=== PATIENT | female | born 1945 | race Caucasian/White ===

== ENCOUNTER → 2023-10-08 15:59 | Outpatient (REF) | payer MEDICARE, SELFPAY ==
[2023-10-08 13:56] LABS: % Basophils 0.5 % (0-2); % Eosinophils 0.4 % (0-6); % Immature Granulocytes 0.4 % (0-0.5); % Lymphocytes 29.3 % (20.5-51.1); % Monocytes 11.1 % (1.7-9.3); % Neutrophils 58.3 % (42.2-75.2); Absolute Lymphocytes 2.3 10^3/uL (1.2-3.4); Absolute Monocytes 0.9 10^3/uL (0.1-0.6); Absolute Neutrophils 4.5 10^3/uL (1.4-6.5); Hematocrit 41.6 % (37.0-47.0); Hemoglobin 14.2 g/dL (12.0-16.0); Mean Corp Hgb Conc. 34.1 g/dL (33.0-37.0); Mean Corpuscular Hgb 32.5 pg (27.0-31.0); Mean Corpuscular Volume 95.2 fL (81.0-99.0); Mean Platelet Volume 12.2 fL (7.4-10.4); Nucleated Red Blood Cells % 0 %; Platelet Count 232 10^3/uL (130-400); Red Blood Cell Count 4.37 10^6/uL (4.20-5.40); Red Cell Dist. Width 12.7 % (11.5-14.5); White Blood Cell Count 7.8 10^3/uL (4.8-10.8)
[2023-10-08 14:18] LABS: ALT (SGPT) 34 U/L (0-35); AST (SGOT) 42 U/L (14-36); Albumin 3.8 g/dl (3.5-5.0); Alkaline Phosphatase 76 U/L (38-126); Blood Urea Nitrogen 23 mg/dl (7-17); Calcium 10.1 mg/dl (8.4-10.2); Carbon Dioxide 27 mmol/L (22-30); Chloride 106 mmol/L (98-107); Glucose 84 mg/dl (70-99); Potassium 4.4 mmol/L (3.5-5.1); Sodium 138 mmol/L (135-145); Total Bilirubin 0.7 mg/dl (0.2-1.3); Total Protein 6.4 g/dl (6.3-8.2); eGFR > 60.00
[2023-10-09 23:54] LABS: IgG 606 mg/dl (700-1600)
== END ==
LOC: OIDL 15:59
PROVIDERS: ATTENDING PHYSICIAN Internal Medicine Hematology & Oncology
DX: I27.82 Chronic pulmonary embolism (principal)
CPT/HCPCS: 80053; 82784; 85025

== ENCOUNTER → 2023-11-04 09:29 | Outpatient (REF) | payer MEDICARE, SELFPAY ==
[2023-11-04 10:18] LABS: % Basophils 0.4 % (0-2); % Eosinophils 0.4 % (0-6); % Immature Granulocytes 0.8 % (0-0.5); % Lymphocytes 18.3 % (20.5-51.1); % Monocytes 11.9 % (1.7-9.3); % Neutrophils 68.2 % (42.2-75.2); Absolute Basophils 0.1 10^3/uL (0-0.2); Absolute Eosinophils 0.1 10^3/uL (0-0.7); Absolute Immature Granulocytes 0.1 10^3/uL (0-0.05); Absolute Lymphocytes 2.1 10^3/uL (1.2-3.4); Absolute Monocytes 1.4 10^3/uL (0.1-0.6); Hematocrit 43.2 % (37.0-47.0); Hemoglobin 14.5 g/dL (12.0-16.0); Mean Corp Hgb Conc. 33.6 g/dL (33.0-37.0); Mean Corpuscular Hgb 32.7 pg (27.0-31.0); Mean Corpuscular Volume 97.3 fL (81.0-99.0); Mean Platelet Volume 10.9 fL (7.4-10.4); Nucleated Red Blood Cells % 0 %; Platelet Count 274 10^3/uL (130-400); Red Blood Cell Count 4.44 10^6/uL (4.20-5.40); Red Cell Dist. Width 12.8 % (11.5-14.5); White Blood Cell Count 11.7 10^3/uL (4.8-10.8)
[2023-11-04 12:15] LABS: ALT (SGPT) 16 U/L (0-35); AST (SGOT) 25 U/L (14-36); Albumin 3.9 g/dl (3.5-5.0); Alkaline Phosphatase 100 U/L (38-126); Blood Urea Nitrogen 20 mg/dl (7-17); Carbon Dioxide 27 mmol/L (22-30); Chloride 102 mmol/L (98-107); Glucose 138 mg/dl (70-99); Iron 51 ug/dl (37-170); Potassium 3.8 mmol/L (3.5-5.1); Sodium 137 mmol/L (135-145); Total Bilirubin 0.6 mg/dl (0.2-1.3); Total Protein 6.4 g/dl (6.3-8.2); eGFR > 60.00
[2023-11-04 12:24] LABS: Percent Saturation 15 % (20-50); Total Iron Binding Capacity 323 ug/dl (265-497)
[2023-11-04 14:22] LABS: Folate > 20.0 ng/ml (2.76-20); Vitamin B12 520 pg/ml (239-931)
[2023-11-04 14:40] LABS: Urine Albumin Trace (Neg - Trace); Urine Bilirubin 1+ (Negative); Urine Character Clear (Clear); Urine Color Yellow; Urine Glucose Negative (Negative); Urine Ketone Negative (Negative); Urine Leukocyte 1+ (Negative); Urine Nitrite Negative (Negative); Urine Occult Blood Negative (Negative); Urine Specific Gravity 1.025 (<1.030); Urine Urobilinogen Negative (Neg - 1+)
[2023-11-04 15:01] LABS: Urine Calcium Oxalate Crystals Present; Urine Squamous Cell 0-2 /LPF (Few)
[2023-11-04 15:02] LABS: Urine Bacteria Few (Negative); Urine Red Blood Cell 0-2 /HPF (0-2); Urine White Cell 0-2 /HPF (0-5)
[2023-11-05 18:37] LABS: Ferritin 89.9 ng/ml (11.1-264.0)
== END ==
LOC: REG 09:29
PROVIDERS: ATTENDING PHYSICIAN Nurse Practitioner Adult Health; FAMILY PHYSICIAN Internal Medicine Geriatric Medicine; REFERRING PHYSICIAN Internal Medicine Rheumatology
DX: I27.82 Chronic pulmonary embolism (principal); D83.9 Common variable immunodeficiency, unspecified; D50.9 Iron deficiency anemia, unspecified; C83.07 Small cell B-cell lymphoma, spleen; D70.9 Neutropenia, unspecified; R19.7 Diarrhea, unspecified; R53.83 Other fatigue; D51.3 Other dietary vitamin B12 deficiency anemia; M25.50 Pain in unspecified joint; M48.061 Spinal stenosis, lumbar region without neurogenic claudication; M54.50 Low back pain, unspecified; M81.0 Age-related osteoporosis without current pathological fracture; Z51.81 Encounter for therapeutic drug level monitoring; R32 Unspecified urinary incontinence
CPT/HCPCS: 36415; 80053; 81003; 81015; 82607; 82728; 82746; 83540; 83550; 85025; 87086

== ENCOUNTER → 2023-11-06 14:11 | Outpatient (REF) | payer MEDICARE, SELFPAY | LOC: RAD 14:11 | PROVIDERS: ATTENDING PHYSICIAN Nurse Practitioner Family | DX: J06.9 Acute upper respiratory infection, unspecified (principal) | CPT/HCPCS: 71046 ==

== ENCOUNTER → 2023-11-13 09:59 | Outpatient (REF) | payer MEDICARE, SELFPAY ==
[2023-11-13 11:43] LABS: Urine Albumin Negative (Neg - Trace); Urine Bilirubin 1+ (Negative); Urine Character Clear (Clear); Urine Color Yellow; Urine Glucose Negative (Negative); Urine Ketone Trace (Negative); Urine Leukocyte Trace (Negative); Urine Nitrite Negative (Negative); Urine Occult Blood Negative (Negative); Urine Urobilinogen Negative (Neg - 1+)
[2023-11-13 11:46] LABS: Urine Red Blood Cell 0-2 /HPF (0-2); Urine Urothelial Cell 0-2 /LPF (FEW); Urine White Cell 0-2 /HPF (0-5)
== END ==
LOC: REG 09:59
PROVIDERS: ATTENDING PHYSICIAN Internal Medicine Geriatric Medicine
DX: R39.9 Unspecified symptoms and signs involving the genitourinary system (principal)
CPT/HCPCS: 81003; 81015; 87086

== ENCOUNTER → 2023-11-18 12:08 | Outpatient (REF) | payer MEDICARE, SELFPAY ==
[2023-11-18 13:09] LABS: Urine Albumin Negative (Neg - Trace); Urine Bilirubin 1+ (Negative); Urine Character Clear (Clear); Urine Color Yellow; Urine Glucose Negative (Negative); Urine Ketone Negative (Negative); Urine Leukocyte Trace (Negative); Urine Nitrite Negative (Negative); Urine Occult Blood Negative (Negative); Urine Urobilinogen Negative (Neg - 1+)
[2023-11-18 13:17] LABS: Urine Bacteria Few (Negative); Urine Red Blood Cell 0-2 /HPF (0-2)
== END ==
LOC: REG 12:08
PROVIDERS: ATTENDING PHYSICIAN Internal Medicine Geriatric Medicine
DX: D80.3 Selective deficiency of immunoglobulin G [IgG] subclasses (principal); E78.2 Mixed hyperlipidemia; J44.9 Chronic obstructive pulmonary disease, unspecified; C85.90 Non-Hodgkin lymphoma, unspecified, unspecified site; E03.8 Other specified hypothyroidism; E78.00 Pure hypercholesterolemia, unspecified; K21.9 Gastro-esophageal reflux disease without esophagitis; M54.16 Radiculopathy, lumbar region; M75.41 Impingement syndrome of right shoulder; Z13.89 Encounter for screening for other disorder; I35.1 Nonrheumatic aortic (valve) insufficiency; F51.01 Primary insomnia; G62.9 Polyneuropathy, unspecified
CPT/HCPCS: 81003; 81015; 87086

== ENCOUNTER → 2024-01-28 11:17 | Outpatient (REF) | payer MEDICARE, SELFPAY ==
[2024-01-28 11:20] LABS: % Basophils 0.2 % (0-2); % Immature Granulocytes 0.2 % (0-0.5); % Lymphocytes 22.6 % (20.5-51.1); % Monocytes 10.9 % (1.7-9.3); % Neutrophils 65.1 % (42.2-75.2); Absolute Eosinophils 0.1 10^3/uL (0-0.7); Absolute Lymphocytes 1.9 10^3/uL (1.2-3.4); Absolute Monocytes 0.9 10^3/uL (0.1-0.6); Absolute Neutrophils 5.6 10^3/uL (1.4-6.5); Hematocrit 44.1 % (37.0-47.0); Hemoglobin 14.7 g/dL (12.0-16.0); Mean Corp Hgb Conc. 33.3 g/dL (33.0-37.0); Mean Corpuscular Hgb 32.5 pg (27.0-31.0); Mean Corpuscular Volume 97.6 fL (81.0-99.0); Mean Platelet Volume 11.4 fL (7.4-10.4); Platelet Count 201 10^3/uL (130-400); Red Blood Cell Count 4.52 10^6/uL (4.20-5.40); Red Cell Dist. Width 12.9 % (11.5-14.5); White Blood Cell Count 8.6 10^3/uL (4.8-10.8)
[2024-01-28 11:58] LABS: Iron 104 ug/dl (37-170); LDH 223 U/L (120-246)
[2024-01-28 12:07] LABS: Percent Saturation 29 % (20-50); Total Iron Binding Capacity 347 ug/dl (265-497)
[2024-01-28 13:40] LABS: Ferritin 43.6 ng/ml (11.1-264.0)
[2024-01-28 14:11] LABS: Folate 17.4 ng/ml (2.76-20); Vitamin B12 401 pg/ml (239-931)
[2024-01-29 23:34] LABS: IgG 639 mg/dl (700-1600)
== END ==
LOC: OIDL 11:17
PROVIDERS: ATTENDING PHYSICIAN Internal Medicine Hematology & Oncology
DX: I27.82 Chronic pulmonary embolism (principal)
CPT/HCPCS: 82607; 82728; 82746; 82784; 83540; 83550; 83615; 85025

== ENCOUNTER → 2024-01-29 10:41 | Outpatient (REF) | payer MEDICARE, SELFPAY | LOC: RAD 10:41 | PROVIDERS: ATTENDING PHYSICIAN Internal Medicine Rheumatology; FAMILY PHYSICIAN Internal Medicine Geriatric Medicine | DX: M81.0 Age-related osteoporosis without current pathological fracture (principal); Z13.820 Encounter for screening for osteoporosis | CPT/HCPCS: 77080 ==

== ENCOUNTER → 2024-03-11 08:56 | Outpatient (REF) | payer MEDICARE, SELFPAY ==
[2024-03-11 10:14] LABS: % Basophils 0.3 % (0-2); % Eosinophils 0.7 % (0-6); % Immature Granulocytes 0.7 % (0-0.5); % Lymphocytes 18.3 % (20.5-51.1); % Monocytes 8.4 % (1.7-9.3); % Neutrophils 71.6 % (42.2-75.2); Absolute Eosinophils 0.1 10^3/uL (0-0.7); Absolute Immature Granulocytes 0.1 10^3/uL (0-0.05); Absolute Lymphocytes 2.2 10^3/uL (1.2-3.4); Absolute Neutrophils 8.7 10^3/uL (1.4-6.5); Hematocrit 44.2 % (37.0-47.0); Mean Corp Hgb Conc. 33.9 g/dL (33.0-37.0); Mean Corpuscular Hgb 32.5 pg (27.0-31.0); Mean Corpuscular Volume 95.7 fL (81.0-99.0); Mean Platelet Volume 11.7 fL (7.4-10.4); Nucleated Red Blood Cells % 0 %; Platelet Count 245 10^3/uL (130-400); Red Blood Cell Count 4.62 10^6/uL (4.20-5.40); Red Cell Dist. Width 13.5 % (11.5-14.5); White Blood Cell Count 12.1 10^3/uL (4.8-10.8)
[2024-03-11 10:41] LABS: ALT (SGPT) 23 U/L (0-35); AST (SGOT) 27 U/L (14-36); Albumin 4.5 g/dl (3.5-5.0); Alkaline Phosphatase 78 U/L (38-126); Blood Urea Nitrogen 23 mg/dl (7-17); Calcium 10.2 mg/dl (8.4-10.2); Carbon Dioxide 26 mmol/L (22-30); Chloride 105 mmol/L (98-107); Glucose 97 mg/dl (70-99); HDL Cholesterol 99 mg/dl; LDL Cholesterol, Calculated 50 mg/dl; Potassium 4.1 mmol/L (3.5-5.1); Sodium 139 mmol/L (135-145); Total Bilirubin 0.7 mg/dl (0.2-1.3); Total Cholesterol 177 mg/dl (50-199); Total Protein 6.7 g/dl (6.3-8.2); Triglyceride 142 mg/dl (10-149); Very Low Density Lipoprotein 28 mg/dl (0-30); eGFR > 60.00
[2024-03-11 10:45] LABS: Free T4 0.82 ng/dl (0.78-2.19); Vitamin D, 25-OH*** 43.2 ng/mL (30-80)
[2024-03-11 10:58] LABS: TSH 2.61 uIU/ml (0.47-4.68)
== END ==
LOC: REG 08:56
PROVIDERS: ATTENDING PHYSICIAN Internal Medicine Rheumatology; FAMILY PHYSICIAN Internal Medicine Geriatric Medicine
DX: G95.9 Disease of spinal cord, unspecified (principal); E78.2 Mixed hyperlipidemia; D80.3 Selective deficiency of immunoglobulin G [IgG] subclasses; J44.9 Chronic obstructive pulmonary disease, unspecified; C85.90 Non-Hodgkin lymphoma, unspecified, unspecified site; E03.8 Other specified hypothyroidism; E78.00 Pure hypercholesterolemia, unspecified; K21.9 Gastro-esophageal reflux disease without esophagitis; M54.16 Radiculopathy, lumbar region; M75.41 Impingement syndrome of right shoulder; Z13.89 Encounter for screening for other disorder; I35.1 Nonrheumatic aortic (valve) insufficiency; F51.01 Primary insomnia; G62.9 Polyneuropathy, unspecified; M25.50 Pain in unspecified joint; M48.061 Spinal stenosis, lumbar region without neurogenic claudication; M54.50 Low back pain, unspecified; M81.0 Age-related osteoporosis without current pathological fracture; Z51.81 Encounter for therapeutic drug level monitoring
CPT/HCPCS: 36415; 80053; 80061; 82306; 83970; 84439; 84443; 85025

== ENCOUNTER → 2024-03-13 09:44 | Outpatient (REF) | payer MEDICARE, SELFPAY ==
[2024-03-13 10:37] LABS: % Basophils 0.6 % (0-2); % Eosinophils 0.7 % (0-6); % Immature Granulocytes 0.5 % (0-0.5); % Lymphocytes 18.6 % (20.5-51.1); % Monocytes 11.7 % (1.7-9.3); % Neutrophils 67.9 % (42.2-75.2); Absolute Basophils 0.1 10^3/uL (0-0.2); Absolute Eosinophils 0.1 10^3/uL (0-0.7); Absolute Immature Granulocytes 0.1 10^3/uL (0-0.05); Absolute Lymphocytes 1.9 10^3/uL (1.2-3.4); Absolute Monocytes 1.2 10^3/uL (0.1-0.6); Absolute Neutrophils 6.8 10^3/uL (1.4-6.5); Hematocrit 41.9 % (37.0-47.0); Hemoglobin 14.2 g/dL (12.0-16.0); Mean Corp Hgb Conc. 33.9 g/dL (33.0-37.0); Mean Corpuscular Hgb 32.7 pg (27.0-31.0); Mean Corpuscular Volume 96.5 fL (81.0-99.0); Mean Platelet Volume 11.4 fL (7.4-10.4); Nucleated Red Blood Cells % 0 %; Platelet Count 233 10^3/uL (130-400); Red Blood Cell Count 4.34 10^6/uL (4.20-5.40); Red Cell Dist. Width 13.5 % (11.5-14.5); White Blood Cell Count 10.1 10^3/uL (4.8-10.8)
[2024-03-13 10:55] LABS: NT-proBNP 149 pg/ml
[2024-03-13 12:14] LABS: ALT (SGPT) 20 U/L (0-35); AST (SGOT) 24 U/L (14-36); Albumin 4.1 g/dl (3.5-5.0); Alkaline Phosphatase 83 U/L (38-126); Blood Urea Nitrogen 27 mg/dl (7-17); Calcium 10.2 mg/dl (8.4-10.2); Carbon Dioxide 24 mmol/L (22-30); Chloride 108 mmol/L (98-107); Glucose 136 mg/dl (70-99); Potassium 3.7 mmol/L (3.5-5.1); Sodium 141 mmol/L (135-145); Total Bilirubin 0.5 mg/dl (0.2-1.3); Total Protein 6.1 g/dl (6.3-8.2); eGFR 57.31
[2024-03-14 10:38] LABS: Intact PTH 30.7 pg/ml (13.6-85.8)
== END ==
LOC: REG 09:44
PROVIDERS: ATTENDING PHYSICIAN Internal Medicine Geriatric Medicine
DX: R53.83 Other fatigue (principal); R79.9 Abnormal finding of blood chemistry, unspecified; Z79.01 Long term (current) use of anticoagulants; G95.9 Disease of spinal cord, unspecified; E78.2 Mixed hyperlipidemia; D80.3 Selective deficiency of immunoglobulin G [IgG] subclasses; J44.9 Chronic obstructive pulmonary disease, unspecified; C85.90 Non-Hodgkin lymphoma, unspecified, unspecified site; E03.8 Other specified hypothyroidism; E78.00 Pure hypercholesterolemia, unspecified; K21.9 Gastro-esophageal reflux disease without esophagitis; M54.16 Radiculopathy, lumbar region; M75.41 Impingement syndrome of right shoulder; Z13.89 Encounter for screening for other disorder; I35.1 Nonrheumatic aortic (valve) insufficiency; F51.01 Primary insomnia; G62.9 Polyneuropathy, unspecified
CPT/HCPCS: 36415; 80053; 83880; 83970; 85025

== ENCOUNTER → 2024-04-10 11:07 | Outpatient (REF) | payer MEDICARE, SELFPAY ==
[2024-04-10 11:43] LABS: % Basophils 0.5 % (0-2); % Eosinophils 0.7 % (0-6); % Immature Granulocytes 0.4 % (0-0.5); % Lymphocytes 24.7 % (20.5-51.1); % Monocytes 11.1 % (1.7-9.3); % Neutrophils 62.6 % (42.2-75.2); Absolute Eosinophils 0.1 10^3/uL (0-0.7); Absolute Monocytes 0.9 10^3/uL (0.1-0.6); Absolute Neutrophils 5.1 10^3/uL (1.4-6.5); Hematocrit 42.4 % (37.0-47.0); Hemoglobin 14.7 g/dL (12.0-16.0); Mean Corp Hgb Conc. 34.7 g/dL (33.0-37.0); Mean Corpuscular Hgb 33.6 pg (27.0-31.0); Mean Platelet Volume 10.7 fL (7.4-10.4); Nucleated Red Blood Cells % 0 %; Platelet Count 240 10^3/uL (130-400); Red Blood Cell Count 4.37 10^6/uL (4.20-5.40); Red Cell Dist. Width 13.6 % (11.5-14.5); White Blood Cell Count 8.1 10^3/uL (4.8-10.8)
[2024-04-10 12:46] LABS: ALT (SGPT) 23 U/L (0-35); AST (SGOT) 29 U/L (14-36); Albumin 4.3 g/dl (3.5-5.0); Alkaline Phosphatase 115 U/L (38-126); Blood Urea Nitrogen 23 mg/dl (7-17); Calcium 10.6 mg/dl (8.4-10.2); Carbon Dioxide 28 mmol/L (22-30); Chloride 105 mmol/L (98-107); Glucose 102 mg/dl (70-99); Iron 73 ug/dl (37-170); LDH 245 U/L (120-246); Potassium 4.5 mmol/L (3.5-5.1); Sodium 143 mmol/L (135-145); Total Bilirubin 0.5 mg/dl (0.2-1.3); Total Protein 6.4 g/dl (6.3-8.2); eGFR 45.76
[2024-04-10 12:55] LABS: Percent Saturation 21 % (20-50); Total Iron Binding Capacity 343 ug/dl (265-497)
[2024-04-10 13:09] LABS: Ferritin 39.8 ng/ml (11.1-264.0)
[2024-04-10 13:40] LABS: Folate > 20.0 ng/ml (2.76-20); Vitamin B12 479 pg/ml (239-931)
[2024-04-13 00:05] LABS: IgG 477 mg/dl (700-1600)
== END ==
LOC: REG 11:07
PROVIDERS: ATTENDING PHYSICIAN Internal Medicine Hematology & Oncology; FAMILY PHYSICIAN Internal Medicine Geriatric Medicine
DX: I27.82 Chronic pulmonary embolism (principal); D83.9 Common variable immunodeficiency, unspecified; D50.9 Iron deficiency anemia, unspecified; C83.07 Small cell B-cell lymphoma, spleen; D70.9 Neutropenia, unspecified; R19.7 Diarrhea, unspecified; R53.83 Other fatigue; D51.3 Other dietary vitamin B12 deficiency anemia
CPT/HCPCS: 36415; 80053; 82607; 82728; 82746; 82784; 83540; 83550; 83615; 85025

== ENCOUNTER → 2024-04-17 11:18 | Outpatient (REF) | payer MEDICARE, SELFPAY ==
[2024-04-17 12:36] LABS: % Basophils 0.3 % (0-2); % Eosinophils 0.1 % (0-6); % Immature Granulocytes 2.4 % (0-0.5); % Lymphocytes 7.8 % (20.5-51.1); % Monocytes 10.7 % (1.7-9.3); % Neutrophils 78.7 % (42.2-75.2); Absolute Basophils 0.1 10^3/uL (0-0.2); Absolute Immature Granulocytes 0.4 10^3/uL (0-0.05); Absolute Lymphocytes 1.4 10^3/uL (1.2-3.4); Absolute Monocytes 1.9 10^3/uL (0.1-0.6); Absolute Neutrophils 14.2 10^3/uL (1.4-6.5); Hematocrit 42.5 % (37.0-47.0); Hemoglobin 14.5 g/dL (12.0-16.0); Mean Corp Hgb Conc. 34.1 g/dL (33.0-37.0); Mean Corpuscular Hgb 33.6 pg (27.0-31.0); Mean Corpuscular Volume 98.4 fL (81.0-99.0); Mean Platelet Volume 11.5 fL (7.4-10.4); Nucleated Red Blood Cells % 0 %; Platelet Count 245 10^3/uL (130-400); Red Blood Cell Count 4.32 10^6/uL (4.20-5.40); Red Cell Dist. Width 13.2 % (11.5-14.5)
[2024-04-17 12:56] LABS: Urine Albumin Trace (Neg - Trace); Urine Bilirubin 1+ (Negative); Urine Character Clear (Clear); Urine Color Yellow; Urine Glucose Negative (Negative); Urine Ketone Trace (Negative); Urine Leukocyte 1+ (Negative); Urine Nitrite Negative (Negative); Urine Occult Blood Negative (Negative); Urine Specific Gravity 1.015 (<1.030); Urine Urobilinogen Negative (Neg - 1+)
[2024-04-17 13:04] LABS: Blood Urea Nitrogen 16 mg/dl (7-17); Carbon Dioxide 24 mmol/L (22-30); Chloride 100 mmol/L (98-107); Glucose 124 mg/dl (70-99); Potassium 4.3 mmol/L (3.5-5.1); Sodium 139 mmol/L (135-145)
[2024-04-17 13:05] LABS: Urine Squamous Cell >30 /LPF (Few)
[2024-04-17 13:06] LABS: Urine Bacteria Few (Negative); Urine Red Blood Cell 0-2 /HPF (0-2)
== END ==
LOC: REG 11:18
PROVIDERS: ATTENDING PHYSICIAN Nurse Practitioner Family
DX: D80.3 Selective deficiency of immunoglobulin G [IgG] subclasses (principal); B97.89 Other viral agents as the cause of diseases classified elsewhere; J98.8 Other specified respiratory disorders; C85.90 Non-Hodgkin lymphoma, unspecified, unspecified site; R35.0 Frequency of micturition
CPT/HCPCS: 36415; 71046; 80048; 81003; 81015; 85025; 87086

== ENCOUNTER → 2024-06-15 13:18 | Outpatient (REF) | payer MEDICARE, SELFPAY ==
[2024-06-15 14:21] LABS: % Basophils 0.3 % (0-2); % Eosinophils 0.3 % (0-6); % Lymphocytes 9.1 % (20.5-51.1); % Monocytes 7.1 % (1.7-9.3); % Neutrophils 82.2 % (42.2-75.2); Absolute Immature Granulocytes 0.1 10^3/uL (0-0.05); Absolute Monocytes 0.8 10^3/uL (0.1-0.6); Absolute Neutrophils 8.6 10^3/uL (1.4-6.5); Hematocrit 43.9 % (37.0-47.0); Hemoglobin 14.9 g/dL (12.0-16.0); Mean Corp Hgb Conc. 33.9 g/dL (33.0-37.0); Mean Corpuscular Hgb 32.3 pg (27.0-31.0); Mean Platelet Volume 11.1 fL (7.4-10.4); Nucleated Red Blood Cells % 0 %; Platelet Count 247 10^3/uL (130-400); Red Blood Cell Count 4.62 10^6/uL (4.20-5.40); Red Cell Dist. Width 12.6 % (11.5-14.5); White Blood Cell Count 10.5 10^3/uL (4.8-10.8)
[2024-06-15 14:55] LABS: ALT (SGPT) 22 U/L (0-35); AST (SGOT) 28 U/L (14-36); Albumin 4.2 g/dl (3.5-5.0); Alkaline Phosphatase 79 U/L (38-126); Blood Urea Nitrogen 22 mg/dl (7-17); Calcium 9.5 mg/dl (8.4-10.2); Carbon Dioxide 24 mmol/L (22-30); Chloride 105 mmol/L (98-107); Glucose 116 mg/dl (70-99); Potassium 4.4 mmol/L (3.5-5.1); Sodium 142 mmol/L (135-145); Total Bilirubin 0.5 mg/dl (0.2-1.3); Total Protein 6.6 g/dl (6.3-8.2); eGFR > 60.00
== END ==
LOC: REG 13:18
PROVIDERS: ATTENDING PHYSICIAN Internal Medicine Rheumatology; PRIMARYCARE PHYSICIAN Internal Medicine Geriatric Medicine
DX: M25.50 Pain in unspecified joint (principal); M48.061 Spinal stenosis, lumbar region without neurogenic claudication; M54.50 Low back pain, unspecified; M81.0 Age-related osteoporosis without current pathological fracture; Z51.81 Encounter for therapeutic drug level monitoring
CPT/HCPCS: 36415; 80053; 85025

== ENCOUNTER → 2024-06-22 12:41 | Outpatient (REF) | payer MEDICARE, SELFPAY | LOC: RAD 12:41 | PROVIDERS: ATTENDING PHYSICIAN Internal Medicine Critical Care Medicine; FAMILY PHYSICIAN Internal Medicine Geriatric Medicine | DX: R91.1 Solitary pulmonary nodule (principal) | CPT/HCPCS: 71250 ==

== ENCOUNTER → 2024-07-06 13:09 | Outpatient (REF) | payer MEDICARE, SELFPAY ==
[2024-07-06 13:52] LABS: % Basophils 0.3 % (0-2); % Eosinophils 0.3 % (0-6); % Neutrophils 77.4 % (42.2-75.2); Absolute Immature Granulocytes 0.1 10^3/uL (0-0.05); Absolute Lymphocytes 1.3 10^3/uL (1.2-3.4); Absolute Monocytes 0.8 10^3/uL (0.1-0.6); Absolute Neutrophils 7.7 10^3/uL (1.4-6.5); Hematocrit 51.1 % (37.0-47.0); Hemoglobin 16.4 g/dL (12.0-16.0); Mean Corp Hgb Conc. 32.1 g/dL (33.0-37.0); Mean Corpuscular Hgb 32.9 pg (27.0-31.0); Mean Corpuscular Volume 102.6 fL (81.0-99.0); Mean Platelet Volume 10.9 fL (7.4-10.4); Nucleated Red Blood Cells % 0 %; Platelet Count 256 10^3/uL (130-400); Red Blood Cell Count 4.98 10^6/uL (4.20-5.40); Red Cell Dist. Width 13.2 % (11.5-14.5)
[2024-07-06 14:15] LABS: Iron 124 ug/dl (37-170)
[2024-07-06 14:27] LABS: Percent Saturation 34 % (20-50); Total Iron Binding Capacity 363 ug/dl (265-497)
[2024-07-06 14:53] LABS: Ferritin 50.8 ng/ml (11.1-264.0)
[2024-07-06 14:57] LABS: LDH 271 U/L (120-246)
[2024-07-06 15:25] LABS: Folate > 20.0 ng/ml (2.76-20); Vitamin B12 826 pg/ml (239-931)
== END ==
LOC: REG 13:09
PROVIDERS: ATTENDING PHYSICIAN Internal Medicine Hematology & Oncology
DX: I27.82 Chronic pulmonary embolism (principal); D83.9 Common variable immunodeficiency, unspecified; D50.9 Iron deficiency anemia, unspecified; C83.07 Small cell B-cell lymphoma, spleen; D70.9 Neutropenia, unspecified; R19.7 Diarrhea, unspecified; R53.83 Other fatigue; D51.3 Other dietary vitamin B12 deficiency anemia
CPT/HCPCS: 36415; 82607; 82728; 82746; 83540; 83550; 83615; 85025

== ENCOUNTER 2024-07-13 10:09 | Emergency (ER) | payer MEDICARE, SELFPAY ==
[2024-07-13 10:12] VITALS: BP 142/81
[2024-07-13 10:13] VITALS: BP 142/80; BMI 28.9
--- NOTE | 2024-07-13 10:20 | ED.GENMED ---
History of Present Illness
General
Chief Complaint: Fall
Source: patient, spouse and ambulance crew
Time Seen by Provider: 07/13/24 10:16
History of Present Illness
History of Present Illness:
79yoF with a history of non-Hodgkin's lymphoma not currently in treatment, prior PE on Eliquis, hypertension, hyperlipidemia, and chronic back pain presenting via EMS for evaluation after a fall. Patient is not sure what happened and does not
remember the incident. Her apparently heard the patient scream and she was found on the floor. She was on her back next to 3 carpeted steps. EMS was called who helped patient off the floor. She was complaining of neck pain en route and was
placed in a cervical collar. She also reports low back pain. She has a history of chronic low back pain and has underwent a vertebroplasty. 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 She denies any
preceding dizziness prior to this episode.
now arrived. He reports that he heard her make a noise and she was on the ground near the steps. She was awake but not able to speak normally and was moaning. He immediately called 911. After about 3 minutes, her speech symptoms resolved. No
seizure-like activity reported. found several things on the ground including her phone and believes that she fell walking down the steps. He reports that she has been complaining of dizziness over the past few days and she also deals with
chronic fatigue.
Past History
Past History
ED Past Medical History: Asthma, Cancer (Recurrent non-Hodgkin's lymphoma), HTN, Hypercholesterolemia and Other (pneumonia last 08/2013, pulmonary embolism)
ED Past Surgical History: Cholecystectomy and Other (Splenectomy, bunion removed, thoracentesis of both lungs, surgery for a right-sided port)
Social History
Tobacco: Non-smoker
Alcohol: None
Drug: None
Personal:
Living: with family
Employment: Retired
Family History
Family History: Other (She had a mother with renal cell carcinoma)
Phy Exam
Physical Exam
Physical Exam:
Awake, alert, answering questions
General Physical Exam
General Presentation: well appearing
General age: appears stated age
General Skin: warm and dry
General Habitus: normal
General Mental: alert
ENT Exam
ENT Exam: normocephalic
Additional ENT: No external signs of head trauma. Cervical collar in place.
Eye Exam
Eye Exam: PERRL
Cardiovascular Exam
Cardiovascular Exam: regular rate/rhythm and no murmur
Pulmonary Exam
Pulmonary Exam: lungs clear, no respiratory distress, no rales, no crackles and no rhonchi
Gastrointestinal Exam
Gastrointestinal Exam: non tender, soft and non distended
Neurological Exam
Neurological Exam: alert and no motor deficits
[place] Coma Scale
Eye Opening: Spontaneous
Verbal Response: Oriented
Motor Response: Obeys Commands
GCS Total Score: 15
Musculoskeletal Exam
Musculoskeletal Exam: other (+Lumbar spine tenderness without step-offs or skin changes.)
Skin Exam
Skin Exam: normal color and warm/dry
Psychiatric Exam
Psychiatric Exam: normal mood/affect
Course
Orders/Labs/Results
Orders:
Orders
07/13/24 10:17
CT Cervical Spine W/o Iv Contr Urgent
Comment:
Reason For Exam: Fall, neck pain
CT Lumbar Spine W/o Iv Contras Urgent
Comment:
Reason For Exam: Fall, low back pain
Oxycodone/Acetaminophen [Percocet 5/325] 1 tablet PO NOW STA
07/13/24 10:18
Electrocardiogram (*1) Urgent
Reason for Study: Syncope
CT Head W/o Iv Contrast Urgent
Comment:
Reason For Exam: Fall on blood thinners
EKG- Treatment ONCE
07/13/24 10:19
Cardiac Monitoring- Treatment ONCE
07/13/24 10:24
Complete Blood Count/With Diff Urgent
Comprehensive Metabolic Panel Urgent
Troponin I Urgent
Abnormal Lab Results
07/13/24
10:24
WBC 11.4 H 10^3/uL
(4.8-10.8)
MCH 33.2 H pg
(27.0-31.0)
MPV 11.0 H fL
(7.4-10.4)
Abs Immat Gran (auto) 0.1 H 10^3/uL
(0-0.05)
Absolute Neuts (auto) 8.8 H 10^3/uL
(1.4-6.5)
Absolute Monos (auto) 0.8 H 10^3/uL
(0.1-0.6)
Immature Gran % 0.6 H %
(0-0.5)
Neutrophils % 77.1 H %
(42.2-75.2)
Lymphocytes % 14.9 L %
(20.5-51.1)
BUN 20 H mg/dl
(7-17)
Glucose 134 H mg/dl
(70-99)
07/13/24 10:24
07/13/24 10:24
Vital Signs
Initial and Last Documented VS:
Initial Vital Signs
BP
142/81
07/13/24 10:12
Last Documented Vital Signs
Temp Pulse Resp BP Pulse Ox
97.7 F 84 21 118/85 97
07/13/24 10:13 07/13/24 12:51 07/13/24 12:51 07/13/24 12:00 07/13/24 12:51
MDM/Problems Addressed
Differential Diagnosis Includes:
79yoF here after found her on the ground today. Episode was unwitnessed. She was moaning temporarily after found her but she is now speaking normally. Patient does not recall the event but denies any preceding dizziness. VSS. She is
awake, alert, with a GCS of 15. She arrives with a cervical collar in place. Differential diagnosis includes but is not limited to: Mechanical fall, concussion, syncope, less likely seizure as there was no incontinence or visualized seizure-like
activity
Initial ED plan: Check cardiac labs, EKG, CT head, CT cervical spine, and CT lumbar spine. Percocet ordered for pain.
*EKG
Interpreted by ED Provider?: Yes
EKG Intrepretation Date: 07/13/24
Heart Rate: 77
Rate: normal
Rhythm: sinus
[place]: normal axis
Interval: first degree heart block
QRS Pattern: normal QRS
Ischemia: no ischemia
*Critical Care Note
Total Time (30-74mins, 75-104mins- exclusive of procedures): Not Applicable
Update Note
Update Note:
EKG shows NSR without ischemic changes or ectopy. Troponin WNL. Imaging negative for traumatic injuries. CT head does show paranasal sinus changes and she reports nasal congestion which has been ongoing. On reassessment, she is feeling better other
than fatigue which is chronic for her. Patient was able to ambulate to the bathroom independently without issue. She denies any dizziness with ambulation. No indication for hospitalization and patient feels comfortable going home. Will cover for
possible sinusitis with Augmentin. Advised close f/u with PCP. She also has appointments with oncology and neurology this week. Strict ED return precautions discussed. She was discharged in stable condition.
ED Attending Note
-
Portions of this chart may have been created with voice recognition software.� Occasional wrong word or��sound alike� substitutions may have occurred due to the inherent limitations of voice recognition software.
Discharge Plan
Departure
Patient Disposition: Home (Routine Discharge)
Date of Disposition: 07/13/24
Time of Disposition: 13:16
Patient with high blood pressure during this ER visit?: No
Discharge Problem:
Unwitnessed fall, Sinusitis
Instructions: Preventing falls in adults
Prescriptions:
New
amoxicillin-pot clavulanate 875-125 mg tablet
1 tab PO BID Qty: 14 0RF
No Action
levothyroxine 50 MCG tablet
50 mcg PO DAILY@0700
losartan 50 MG tablet
100 mg PO QPM
amoxicillin 500 MG capsule
2,000 mg PO PRN PRN (Reason: dental procedures)
clobetasol 15 GM cream
1 applic topical PRN PRN (Reason: eczema)
lidocaine-prilocaine 5 GRAM/TUBE cream
1 applic topical DAILYPRN PRN (Reason: SQ port access)
Patient Comments:
R SQ port
calcium polycarbophil [Fiber-Tabs] 625 MG tablet
625 mg PO DAILY
guaifenesin [Mucus Relief ER] 600 MG tablet extended release 12hr
1,200 mg PO DAILY
levalbuterol tartrate 1 PUFF HFA aerosol inhaler
2 puff inhalation PRN PRN (Reason: SOB, WHEEZES)
denosumab [Prolia] 60 MG/ML syringe
60 mg SQ [id number]
lidocaine 1 EACH adhesive patch,medicated
1 ea topical PRN PRN (Reason: back pain)
Patient Comments:
5%
calcium carbonate 600 MG tablet
1,200 mg PO QPM
famotidine 20 MG tablet
20 mg PO QPM
fluticasone propionate 1 SPRAY spray,suspension
2 spray intranasal PRN PRN (Reason: allergies)
omeprazole magnesium [Prilosec OTC] 20 MG tablet,delayed release (DR/EC)
20 mg PO BID
afwjvgps-ivh-KU-lycopen-lutein [Centrum Silver] 1 EACH tablet
1 ea PO QPM
cholecalciferol (vitamin D3) 2,000 UNITS tablet
2,000 units PO QPM
IgG/Hyaluronidase,Recombinant
1 dose IV PRN PRN (Reason: IgG< 600)
Patient Comments:
Dependent on blood work- if IgG< 600
sennosides [senna] 1 TABLET tablet
2 tab PO BID 0RF
docusate sodium 100 MG capsule
100 mg PO BID 0RF
acetaminophen [Tylenol Extra Strength] 500 MG tablet
1,000 mg PO QID Qty: 0 0RF
apixaban [Eliquis] 2.5 MG tablet
2.5 mg PO BID Qty: 0 0RF
Rx Instructions:
4/18 AM unless otheriwse advised
tramadol 50 MG tablet
50 mg PO Q6HPRN PRN (Reason: moderate-severe pain) Qty: 35 0RF
Rx Instructions:
1 tab moderate pain or 2 if pain severe
Dx lami-fusion
ongoing therapy
prednisone 10 MG tablet
40 mg PO TAPER Qty: 12 0RF
Rx Instructions:
4 tab(40mg) day 1, 3 tabs(30mg) day 2, 2 tabs(20mg) day3,
1 tab (10mg) daily, then stop
cephalexin 500 MG capsule
500 mg PO QID Qty: 20 0RF
Rx Instructions:
take with food
take probiotic
Lactobacillus acidophilus 1 EACH capsule
1 ea PO BID Qty: 14 0RF
Rx Instructions:
2 x daily x 7 days
--any OTC probiotic
Referrals:
Randy Callahan MD [Family Provider] -
Activity Restrictions/Additional Instructions:
Take antibiotics as prescribed.
Please call your family doctor today to schedule a follow-up appointment this week. Return to the ER immediately with any new or worsening symptoms.
Interventions
Interventions:
*Risk Screen - Suicide Last Done: 07/13/24 10:13
*General Assessment Last Done: 07/13/24 10:13
*Neglect/Abuse Screening Last Done: 07/13/24 10:13
ED- Fall Risk Assessment Last Done: 07/13/24 10:13
*ED COVID-19 Vaccine History Last Done: 07/13/24 10:13
*Nursing Disposition Last Done: 07/13/24 14:25
ED-Musculoskeletal Assessment Last Done: 07/13/24 10:13
ED- Neurological Assessment Last Done: 07/13/24 10:13
ED-Skin Assessment Last Done: 07/13/24 10:13
Discharge Date and Time
Discharge Date/Time: 07/13/24 14:25
Print Language: GREEK
[2024-07-13] MEDS: PERCOCET 5/325 1 TABLET PO (10:28)
[2024-07-13 10:42] LABS: % Basophils 0.4 % (0-2); % Eosinophils 0.2 % (0-6); % Immature Granulocytes 0.6 % (0-0.5); % Lymphocytes 14.9 % (20.5-51.1); % Monocytes 6.8 % (1.7-9.3); % Neutrophils 77.1 % (42.2-75.2); Absolute Basophils 0.1 10^3/uL (0-0.2); Absolute Immature Granulocytes 0.1 10^3/uL (0-0.05); Absolute Lymphocytes 1.7 10^3/uL (1.2-3.4); Absolute Monocytes 0.8 10^3/uL (0.1-0.6); Absolute Neutrophils 8.8 10^3/uL (1.4-6.5); Hemoglobin 15.5 g/dL (12.0-16.0); Mean Corp Hgb Conc. 33.7 g/dL (33.0-37.0); Mean Corpuscular Hgb 33.2 pg (27.0-31.0); Mean Corpuscular Volume 98.5 fL (81.0-99.0); Nucleated Red Blood Cells % 0 %; Platelet Count 234 10^3/uL (130-400); Red Blood Cell Count 4.67 10^6/uL (4.20-5.40); Red Cell Dist. Width 13.1 % (11.5-14.5); White Blood Cell Count 11.4 10^3/uL (4.8-10.8)
[2024-07-13 10:47] LABS: ALT (SGPT) 25 U/L (0-35); AST (SGOT) 32 U/L (14-36); Albumin 4.3 g/dl (3.5-5.0); Alkaline Phosphatase 80 U/L (38-126); Blood Urea Nitrogen 20 mg/dl (7-17); Calcium 9.9 mg/dl (8.4-10.2); Carbon Dioxide 29 mmol/L (22-30); Chloride 103 mmol/L (98-107); Estimated Creatinine Clearance 50 ml/min; Glucose 134 mg/dl (70-99); Potassium 4.1 mmol/L (3.5-5.1); Sodium 142 mmol/L (135-145); Total Bilirubin 0.6 mg/dl (0.2-1.3); Total Protein 6.6 g/dl (6.3-8.2); eGFR > 60.00
[2024-07-13 10:59] LABS: Troponin I < 0.012 ng/ml
[2024-07-13 11:17] VITALS: BP 120/63
[2024-07-13 12:00] VITALS: BP 118/85
== END 2024-07-13 14:25 | disposition home or self-care (01) ==
LOC: EMR 10:09
PROVIDERS: Physician Assistant; EMERGENCY PHYSICIAN Emergency Medicine; FAMILY PHYSICIAN Internal Medicine Geriatric Medicine
DX: M54.50 Low back pain, unspecified (principal); R42 Dizziness and giddiness; M54.2 Cervicalgia; J01.90 Acute sinusitis, unspecified; W19.XXXA Unspecified fall, initial encounter; I10 Essential (primary) hypertension; E78.00 Pure hypercholesterolemia, unspecified; I44.0 Atrioventricular block, first degree; R53.82 Chronic fatigue, unspecified; M47.815 Spondylosis without myelopathy or radiculopathy, thoracolumbar region; G89.29 Other chronic pain; Z79.01 Long term (current) use of anticoagulants; Z85.72 Personal history of non-Hodgkin lymphomas; Z86.711 Personal history of pulmonary embolism; Z90.49 Acquired absence of other specified parts of digestive tract; Z90.81 Acquired absence of spleen; Z88.1 Allergy status to other antibiotic agents; Z88.8 Allergy status to other drugs, medicaments and biological substances
CPT/HCPCS: 99285; 70450; 72125; 72131; 80053; 84484; 85025; 93005

== ENCOUNTER → 2024-07-23 10:01 | Outpatient (REF) | payer MEDICARE, SELFPAY ==
[2024-07-23 11:41] LABS: % Basophils 0.4 % (0-2); % Eosinophils 0.1 % (0-6); % Immature Granulocytes 0.5 % (0-0.5); % Monocytes 6.6 % (1.7-9.3); % Neutrophils 84.4 % (42.2-75.2); Absolute Immature Granulocytes 0.1 10^3/uL (0-0.05); Absolute Lymphocytes 0.9 10^3/uL (1.2-3.4); Absolute Monocytes 0.7 10^3/uL (0.1-0.6); Absolute Neutrophils 9.3 10^3/uL (1.4-6.5); Hematocrit 43.1 % (37.0-47.0); Hemoglobin 14.9 g/dL (12.0-16.0); Mean Corp Hgb Conc. 34.6 g/dL (33.0-37.0); Mean Corpuscular Hgb 33.7 pg (27.0-31.0); Mean Corpuscular Volume 97.5 fL (81.0-99.0); Nucleated Red Blood Cells % 0 %; Platelet Count 220 10^3/uL (130-400); Red Blood Cell Count 4.42 10^6/uL (4.20-5.40)
[2024-07-23 12:50] LABS: Iron 104 ug/dl (37-170); LDH 306 U/L (120-246)
[2024-07-23 12:55] LABS: IgG 517 mg/dl (700-1600)
[2024-07-23 12:59] LABS: Percent Saturation 30 % (20-50); Total Iron Binding Capacity 344 ug/dl (265-497)
[2024-07-23 13:33] LABS: Vitamin B12 528 pg/ml (239-931)
[2024-07-23 13:58] LABS: Ferritin 42.5 ng/ml (11.1-264.0)
[2024-07-23 14:49] LABS: Folate > 20.0 ng/ml (2.76-20)
== END ==
LOC: REG 10:01
PROVIDERS: ATTENDING PHYSICIAN Internal Medicine Hematology & Oncology; FAMILY PHYSICIAN Internal Medicine Geriatric Medicine
DX: I27.82 Chronic pulmonary embolism (principal); D83.9 Common variable immunodeficiency, unspecified; D50.9 Iron deficiency anemia, unspecified; C83.07 Small cell B-cell lymphoma, spleen; D70.9 Neutropenia, unspecified; R19.7 Diarrhea, unspecified; R53.83 Other fatigue; D51.3 Other dietary vitamin B12 deficiency anemia
CPT/HCPCS: 36415; 82607; 82728; 82746; 82784; 83540; 83550; 83615; 85025

== ENCOUNTER → 2024-08-17 14:18 | Outpatient (REF) | payer MEDICARE, SELFPAY ==
[2024-08-17 10:07] LABS: % Basophils 0.2 % (0-2); % Eosinophils 0.5 % (0-6); % Immature Granulocytes 0.5 % (0-0.5); % Lymphocytes 11.6 % (20.5-51.1); % Monocytes 10.3 % (1.7-9.3); % Neutrophils 76.9 % (42.2-75.2); Absolute Monocytes 0.9 10^3/uL (0.1-0.6); Absolute Neutrophils 6.4 10^3/uL (1.4-6.5); Hematocrit 44.5 % (37.0-47.0); Hemoglobin 14.6 g/dL (12.0-16.0); Mean Corp Hgb Conc. 32.8 g/dL (33.0-37.0); Mean Corpuscular Hgb 32.4 pg (27.0-31.0); Mean Corpuscular Volume 98.7 fL (81.0-99.0); Mean Platelet Volume 11.3 fL (7.4-10.4); Platelet Count 212 10^3/uL (130-400); Red Blood Cell Count 4.51 10^6/uL (4.20-5.40); Red Cell Dist. Width 12.9 % (11.5-14.5); White Blood Cell Count 8.4 10^3/uL (4.8-10.8)
== END ==
LOC: OIDL 14:18
PROVIDERS: ATTENDING PHYSICIAN Internal Medicine Hematology & Oncology
DX: I27.82 Chronic pulmonary embolism (principal)
CPT/HCPCS: 85025

== ENCOUNTER → 2024-08-28 14:51 | Outpatient (REF) | payer MEDICARE, SELFPAY ==
[2024-08-28 15:24] LABS: % Basophils 0.5 % (0-2); % Eosinophils 0.2 % (0-6); % Immature Granulocytes 0.8 % (0-0.5); % Monocytes 5.7 % (1.7-9.3); % Neutrophils 79.8 % (42.2-75.2); Absolute Basophils 0.1 10^3/uL (0-0.2); Absolute Immature Granulocytes 0.1 10^3/uL (0-0.05); Absolute Lymphocytes 1.4 10^3/uL (1.2-3.4); Absolute Monocytes 0.6 10^3/uL (0.1-0.6); Absolute Neutrophils 8.9 10^3/uL (1.4-6.5); Hematocrit 44.1 % (37.0-47.0); Hemoglobin 14.8 g/dL (12.0-16.0); Mean Corp Hgb Conc. 33.6 g/dL (33.0-37.0); Mean Corpuscular Hgb 32.8 pg (27.0-31.0); Mean Corpuscular Volume 97.8 fL (81.0-99.0); Nucleated Red Blood Cells % 0 %; Platelet Count 205 10^3/uL (130-400); Red Blood Cell Count 4.51 10^6/uL (4.20-5.40); White Blood Cell Count 11.1 10^3/uL (4.8-10.8)
[2024-08-28 15:35] LABS: ALT (SGPT) 32 U/L (0-35); AST (SGOT) 37 U/L (14-36); Albumin 4.1 g/dl (3.5-5.0); Alkaline Phosphatase 72 U/L (38-126); Blood Urea Nitrogen 15 mg/dl (7-17); Calcium 9.1 mg/dl (8.4-10.2); Carbon Dioxide 27 mmol/L (22-30); Chloride 104 mmol/L (98-107); Glucose 100 mg/dl (70-99); LDH 242 U/L (120-246); Potassium 3.7 mmol/L (3.5-5.1); Sodium 140 mmol/L (135-145); Total Bilirubin 0.7 mg/dl (0.2-1.3); Total Protein 6.6 g/dl (6.3-8.2); eGFR > 60.00
== END ==
LOC: REG 14:51
PROVIDERS: ATTENDING PHYSICIAN Internal Medicine Hematology & Oncology; FAMILY PHYSICIAN Internal Medicine Geriatric Medicine; REFERRING PHYSICIAN Internal Medicine Rheumatology
DX: I27.82 Chronic pulmonary embolism (principal); D83.9 Common variable immunodeficiency, unspecified; D50.9 Iron deficiency anemia, unspecified; C83.07 Small cell B-cell lymphoma, spleen; D70.9 Neutropenia, unspecified; R19.7 Diarrhea, unspecified; R53.83 Other fatigue; D51.3 Other dietary vitamin B12 deficiency anemia; M25.50 Pain in unspecified joint; M48.061 Spinal stenosis, lumbar region without neurogenic claudication; M54.50 Low back pain, unspecified; M81.0 Age-related osteoporosis without current pathological fracture; Z51.81 Encounter for therapeutic drug level monitoring
CPT/HCPCS: 36415; 80053; 83615; 85025

== ENCOUNTER → 2024-09-04 09:01 | Outpatient (REF) | payer MEDICARE, SELFPAY | LOC: HWRCS 09:01 | PROVIDERS: ATTENDING PHYSICIAN Nurse Practitioner; FAMILY PHYSICIAN Internal Medicine Geriatric Medicine | DX: R55 Syncope and collapse (principal) | CPT/HCPCS: 93306 ==

== ENCOUNTER → 2024-09-25 13:17 | Outpatient (REF) | payer MEDICARE, SELFPAY | LOC: WDC 13:17 | PROVIDERS: ATTENDING PHYSICIAN Obstetrics & Gynecology Gynecology; FAMILY PHYSICIAN Internal Medicine Geriatric Medicine | DX: Z12.39 Encounter for other screening for malignant neoplasm of breast (principal); Z12.31 Encounter for screening mammogram for malignant neoplasm of breast | CPT/HCPCS: 77063; 77067 ==

== ENCOUNTER → 2024-11-03 10:36 | Outpatient (REF) | payer MEDICARE, SELFPAY ==
[2024-11-03 11:46] LABS: % Basophils 0.5 % (0-2); % Eosinophils 0.7 % (0-6); % Immature Granulocytes 0.7 % (0-0.5); % Lymphocytes 20.3 % (20.5-51.1); % Monocytes 13.4 % (1.7-9.3); % Neutrophils 64.4 % (42.2-75.2); Absolute Eosinophils 0.1 10^3/uL (0-0.7); Absolute Immature Granulocytes 0.1 10^3/uL (0-0.05); Absolute Lymphocytes 1.7 10^3/uL (1.2-3.4); Absolute Monocytes 1.1 10^3/uL (0.1-0.6); Absolute Neutrophils 5.2 10^3/uL (1.4-6.5); Hematocrit 44.9 % (37.0-47.0); Hemoglobin 14.8 g/dL (12.0-16.0); Mean Corpuscular Hgb 33.3 pg (27.0-31.0); Mean Corpuscular Volume 100.9 fL (81.0-99.0); Mean Platelet Volume 12.1 fL (7.4-10.4); Nucleated Red Blood Cells % 0 %; Platelet Count 203 10^3/uL (130-400); Red Blood Cell Count 4.45 10^6/uL (4.20-5.40); Red Cell Dist. Width 12.7 % (11.5-14.5); White Blood Cell Count 8.1 10^3/uL (4.8-10.8)
[2024-11-03 12:37] LABS: LDH 231 U/L (120-246)
== END ==
LOC: REG 10:36
PROVIDERS: ATTENDING PHYSICIAN Internal Medicine Hematology & Oncology
DX: I27.82 Chronic pulmonary embolism (principal); D83.9 Common variable immunodeficiency, unspecified; D50.9 Iron deficiency anemia, unspecified; C83.07 Small cell B-cell lymphoma, spleen; D70.9 Neutropenia, unspecified; R19.7 Diarrhea, unspecified; R53.83 Other fatigue; D51.3 Other dietary vitamin B12 deficiency anemia
CPT/HCPCS: 36415; 83615; 85025

== ENCOUNTER → 2024-11-26 10:57 | Outpatient (REF) | payer MEDICARE, SELFPAY | LOC: DHSLP 10:57 | PROVIDERS: ATTENDING PHYSICIAN Internal Medicine Critical Care Medicine; FAMILY PHYSICIAN Internal Medicine Geriatric Medicine | DX: G47.33 Obstructive sleep apnea (adult) (pediatric) (principal) | CPT/HCPCS: 95806 ==

== ENCOUNTER → 2024-12-15 08:39 | Outpatient (REF) | payer MEDICARE, SELFPAY ==
[2024-12-15 09:24] LABS: Urine Albumin 2+ (Neg - Trace); Urine Bilirubin Negative (Negative); Urine Character Slightly Cloudy (Clear); Urine Color Yellow; Urine Glucose 1+ (Negative); Urine Ketone Negative (Negative); Urine Leukocyte 3+ (Negative); Urine Nitrite Positive (Negative); Urine Occult Blood 1+ (Negative); Urine Specific Gravity 1.025 (<1.030); Urine Urobilinogen Negative (Neg - 1+)
[2024-12-15 11:16] LABS: Urine Amorphous Seen
[2024-12-15 11:17] LABS: Urine Red Blood Cell 0-2 /HPF (0-2)
[2024-12-15 11:18] LABS: Urine Bacteria Many (Negative); Urine White Cell 16-20 /HPF (0-5)
== END ==
LOC: REG 08:39
PROVIDERS: ATTENDING PHYSICIAN Nurse Practitioner Family
DX: R39.9 Unspecified symptoms and signs involving the genitourinary system (principal)
CPT/HCPCS: 81003; 81015; 87086; 87088; 87186

== ENCOUNTER 2025-01-22 11:05 | Emergency (ER) | payer MEDICARE, SELFPAY ==
[2025-01-22 11:12] VITALS: BP 163/86
--- NOTE | 2025-01-22 13:13 | ED.GENMED ---
History of Present Illness
General
Chief Complaint: Heart Rate Problem
Time Seen by Provider: 01/22/25 13:12
History of Present Illness
History of Present Illness:
REVIEW OF OLD RECORDS
The patient was seen in the emerge department in 2023 with diagnosed with sinusitis and records also show history of spinal stenosis, chronic bronchitis, has had PE on Eliquis, high blood pressure, hypothyroidism
Note:
CHIEF COMPLAINT(S)
- Rapid heartbeat sensation
- Shortness of breath
HISTORY OF PRESENT ILLNESS
The patient is an 79-year-old female who presented with a sensation of rapid heartbeat early this morning. She used her [employer] device to perform an electrocardiogram, which indicated tachycardia. Blood pressure recorded at home was 125/79
mmHg, which is within normal range. At presentation, the patient reports still feeling the rapid heartbeat; however, in the emergency department, her heart rate was documented at 56 bpm with a normal rhythm.
The patient has experienced shortness of breath for several months and has a history of pulmonary embolism. She has been evaluated by both a supervisor dimension warehouse and a general warehouse associate recently and reports being on medication for her conditions. An
echocardiogram has shown progression of her aortic stenosis from mild to moderate severity.
She is currently taking Apixaban for anticoagulation due to her history of blood clots. She denies abdominal pain and vomiting but requests medication for nausea. She reports feeling possibly dehydrated and might benefit from intravenous fluids. She
has a past port insertion for treatments, which was last accessed around three months ago.
CHRONIC MEDICAL CONDITIONS SIGNIFICANTLY AFFECTING CARE
- Aortic stenosis, mild to moderate progression
- History of pulmonary embolism
SOCIAL DETERMINANTS AFFECTING HEALTH
- None mentioned
REVIEW OF SYSTEMS
- Cardiovascular: Rapid heartbeat sensation, no current chest pain.
- Respiratory: Shortness of breath persisting for months.
- Gastrointestinal: Denies abdominal pain, has nausea, no recent vomiting.
- General: Possible dehydration.
PHYSICAL EXAM
- Cardiovascular: Normal heart rate and rhythm at 56 bpm, murmur noted consistent with aortic stenosis.
- Respiratory: Lung sounds are clear upon examination.
- Gastrointestinal: Non-tender abdomen; denies pain upon palpation.
- General: Well appearing in no distress
- HEENT: Moist oral mucosa
- Pulmonary: No respiratory distress, breath sounds are clear and equal
- Abdomen: Soft with no peritoneal signs, no tenderness
- Neurologic: Excellent strength all extremities, no coordination deficits
- Psychiatric: Appropriate mental status, normal insight and judgement
- Extremities: Nontender, no edema, moves all extremities equally
- Skin: Port noted right anterior chest wall
PROBLEM LIST
Acute Problems:
- Sensation of rapid heartbeat
- Current episode of nausea
Chronic Problems:
- Aortic stenosis
- History of pulmonary embolism
PLAN
- Conduct blood tests to evaluate electrolytes and thyroid function.
- Monitor cardiac status with telemetry.
- Administer intravenous fluids to address potential dehydration.
- Provide antiemetic for nausea.
- Perform chest X-ray to assess lung status.
DIFFERENTIAL DIAGNOSIS
The Differential Diagnosis includes, in no particular order and is not limited to:
- Supraventricular tachycardia
- Atrial fibrillation
- Atrial flutter
- Electrolyte imbalance
- Hyperthyroidism
- Chronic obstructive pulmonary disease exacerbation
- Congestive heart failure
- Pulmonary embolism
- Anxiety-related palpitations
- Medication side effect
RADIOLOGY
- Chest x-ray shows no clear acute abnormality, tunneled port noted
EKG
- Sinus 77, leftward axis deviation, no acute ST abnormality, no change from 07/13/24
LABS
- CBC normal, chemistries unremarkable, BNP near baseline
UPDATE
- 01/22/25 - 15:39
X-ray results do not provide an explanation for symptoms; no definitive findings were noted. Cardiac monitoring has not revealed any abnormalities. Cardiac blood work is within normal limits. Awaiting results of the test for congestive heart
failure, though current suspicion of this condition is low. The decision to discharge is pending completion of outstanding tests.
06/13/25 - 16:27
X-ray results are negative with no concerning findings. BNP levels are lower today, suggesting issues are not heart failure-related. Vital signs are stable, with good heart rate, rhythm, and oxygen levels, though blood pressure is slightly elevated.
Patient is cleared for discharge.
Past History
Past History
ED Past Medical History: Asthma, Cancer (Recurrent non-Hodgkin's lymphoma), HTN, Hypercholesterolemia and Other (pneumonia last 08/2013, pulmonary embolism)
ED Past Surgical History: Cholecystectomy and Other (Splenectomy, bunion removed, thoracentesis of both lungs, surgery for a right-sided port)
Social History
Tobacco: Non-smoker
Alcohol: None
Drug: None
Personal:
Living: with family
Employment: Retired
Family History
Family History: Other (She had a mother with renal cell carcinoma)
Phy Exam
Physical Exam
Physical Exam:
See HPI
Course
Orders/Labs/Results
Orders:
Orders
01/22/25 11:06
EKG [Electrocardiogram (*1)] Urgent
Reason for Study: Shortness of Breath
EKG- Treatment ONCE
01/22/25 13:29
Famotidine [Pepcid] 20 mg IV NOW STA
Ondansetron Injectable [Zofran] 4 mg IV NOW STA
CR Chest - 2 Views Urgent
Comment:
Reason For Exam: sob
01/22/25 14:09
Complete Blood Count/With Diff Urgent
Comprehensive Metabolic Panel Urgent
Magnesium Urgent
NT-proBNP Urgent
TSH Reflex To Free T4 Urgent
Troponin I Urgent
Abnormal Lab Results
01/22/25
14:09
MCH 33.0 H pg
(27.0-31.0)
MPV 11.8 H fL
(7.4-10.4)
Abs Immat Gran (auto) 0.1 H 10^3/uL
(0-0.05)
Absolute Monos (auto) 1.0 H 10^3/uL
(0.1-0.6)
Immature Gran % 0.7 H %
(0-0.5)
Monocytes % 10.1 H %
(1.7-9.3)
Chloride 110 H mmol/L
(98-107)
Total Protein 6.2 L g/dl
(6.3-8.2)
01/22/25 14:09
01/22/25 14:09
Vital Signs
Initial and Last Documented VS:
Initial Vital Signs
Temp Pulse Resp BP Pulse Ox
36.8 C 75 18 163/86 99
01/22/25 11:12 01/22/25 11:12 01/22/25 11:12 01/22/25 11:12 01/22/25 11:12
Last Documented Vital Signs
Temp Pulse Resp BP Pulse Ox
36.8 C 61 13 152/65 99
01/22/25 11:12 01/22/25 15:30 01/22/25 15:15 01/22/25 15:00 01/22/25 15:30
*Pulse Oximetry
Patient hypoxic: no
Comment: 99% on room air
*EKG
Interpreted by ED Provider?: Yes
EKG Intrepretation Date: 01/22/25
EKG Intrepretation Time: 13:15
Interpretation: normal
Rate: normal
[place]: left axis deviation
QRS Pattern: normal QRS
Ischemia: non-specific ST changes
*Fingernail Sculpturer Interpretation
Rate: normal
Interpretation: normal
Heart Rate: 66
Rhythm: sinus
*Critical Care Note
Total Time (30-74mins, 75-104mins- exclusive of procedures): Not Applicable
ED Attending Note
-
Portions of this chart may have been created with voice recognition software.� Occasional wrong word or��sound alike� substitutions may have occurred due to the inherent limitations of voice recognition software.
Discharge Plan
Departure
Prescriptions:
No Action
levothyroxine 50 MCG tablet
50 mcg PO DAILY@0700
losartan 50 MG tablet
100 mg PO QPM
amoxicillin 500 MG capsule
2,000 mg PO PRN PRN (Reason: dental procedures)
clobetasol 15 GM cream
1 applic topical PRN PRN (Reason: eczema)
lidocaine-prilocaine 5 GRAM/TUBE cream
1 applic topical DAILYPRN PRN (Reason: SQ port access)
Patient Comments:
R SQ port
calcium polycarbophil [Fiber-Tabs] 625 MG tablet
625 mg PO DAILY
guaifenesin [Mucus Relief ER] 600 MG tablet extended release 12hr
1,200 mg PO DAILY
levalbuterol tartrate 1 PUFF HFA aerosol inhaler
2 puff inhalation PRN PRN (Reason: SOB, WHEEZES)
denosumab [Prolia] 60 MG/ML syringe
60 mg SQ [id number]
lidocaine 1 EACH adhesive patch,medicated
1 ea topical PRN PRN (Reason: back pain)
Patient Comments:
5%
calcium carbonate 600 MG tablet
1,200 mg PO QPM
famotidine 20 MG tablet
20 mg PO QPM
fluticasone propionate 1 SPRAY spray,suspension
2 spray intranasal PRN PRN (Reason: allergies)
omeprazole magnesium [Prilosec OTC] 20 MG tablet,delayed release (DR/EC)
20 mg PO BID
rfzdgxdg-hwj-CE-lycopen-lutein [Centrum Silver] 1 EACH tablet
1 ea PO QPM
cholecalciferol (vitamin D3) 2,000 UNITS tablet
2,000 units PO QPM
IgG/Hyaluronidase,Recombinant
1 dose IV PRN PRN (Reason: IgG< 600)
Patient Comments:
Dependent on blood work- if IgG< 600
sennosides [senna] 1 TABLET tablet
2 tab PO BID 0RF
docusate sodium 100 MG capsule
100 mg PO BID 0RF
acetaminophen [Tylenol Extra Strength] 500 MG tablet
1,000 mg PO QID Qty: 0 0RF
apixaban [Eliquis] 2.5 MG tablet
2.5 mg PO BID Qty: 0 0RF
Rx Instructions:
4/18 AM unless otheriwse advised
tramadol 50 MG tablet
50 mg PO Q6HPRN PRN (Reason: moderate-severe pain) Qty: 35 0RF
Rx Instructions:
1 tab moderate pain or 2 if pain severe
Dx lami-fusion
ongoing therapy
prednisone 10 MG tablet
40 mg PO TAPER Qty: 12 0RF
Rx Instructions:
4 tab(40mg) day 1, 3 tabs(30mg) day 2, 2 tabs(20mg) day3,
1 tab (10mg) daily, then stop
cephalexin 500 MG capsule
500 mg PO QID Qty: 20 0RF
Rx Instructions:
take with food
take probiotic
Lactobacillus acidophilus 1 EACH capsule
1 ea PO BID Qty: 14 0RF
Rx Instructions:
2 x daily x 7 days
--any OTC probiotic
amoxicillin-pot clavulanate 875-125 mg tablet
1 tab PO BID Qty: 14 0RF
Referrals:
Randy Callahan MD [Family Provider, Internal Medicine]
Interventions
Interventions:
*Risk Screen - Suicide Last Done: 01/22/25 11:12
*General Assessment Last Done: 01/22/25 13:24
*Neglect/Abuse Screening Last Done: 01/22/25 11:12
*ED- Fall Risk Assessment Last Done: 01/22/25 13:24
*ED COVID-19 Vaccine History Last Done: 01/22/25 13:24
ED- Cardiac Assessment Last Done: 01/22/25 15:34
ED- Pulmonary Assessment Last Done: 01/22/25 15:35
Discharge Date and Time
Print Language: [id number]
[2025-01-22 13:25] VITALS: BMI 30.5
[2025-01-22 13:27] VITALS: BP 141/78
[2025-01-22 14:00] VITALS: BP 149/75
[2025-01-22 14:28] LABS: % Basophils 0.3 % (0-2); % Eosinophils 0.3 % (0-6); % Immature Granulocytes 0.7 % (0-0.5); % Lymphocytes 28.3 % (20.5-51.1); % Monocytes 10.1 % (1.7-9.3); % Neutrophils 60.3 % (42.2-75.2); Absolute Immature Granulocytes 0.1 10^3/uL (0-0.05); Absolute Lymphocytes 2.9 10^3/uL (1.2-3.4); Absolute Neutrophils 6.2 10^3/uL (1.4-6.5); Hemoglobin 15.2 g/dL (12.0-16.0); Mean Corp Hgb Conc. 34.5 g/dL (33.0-37.0); Mean Corpuscular Volume 95.4 fL (81.0-99.0); Mean Platelet Volume 11.8 fL (7.4-10.4); Nucleated Red Blood Cells % 0 %; Platelet Count 212 10^3/uL (130-400); Red Blood Cell Count 4.61 10^6/uL (4.20-5.40); Red Cell Dist. Width 12.5 % (11.5-14.5); White Blood Cell Count 10.3 10^3/uL (4.8-10.8)
[2025-01-22] MEDS: PEPCID 20 MG IV (14:28)
[2025-01-22] MEDS: ZOFRAN 4 MG IV (14:28)
[2025-01-22 14:38] LABS: ALT (SGPT) 21 U/L (0-35); AST (SGOT) 24 U/L (14-36); Albumin 4.1 g/dl (3.5-5.0); Alkaline Phosphatase 74 U/L (38-126); Blood Urea Nitrogen 17 mg/dl (7-17); Calcium 10.2 mg/dl (8.4-10.2); Carbon Dioxide 27 mmol/L (22-30); Chloride 110 mmol/L (98-107); Estimated Creatinine Clearance 53 ml/min; Glucose 86 mg/dl (70-99); Potassium 3.8 mmol/L (3.5-5.1); Sodium 140 mmol/L (135-145); Total Bilirubin 0.6 mg/dl (0.2-1.3); Total Protein 6.2 g/dl (6.3-8.2); eGFR > 60.00
[2025-01-22 14:49] LABS: Troponin I 0.016 ng/ml
[2025-01-22 15:00] VITALS: BP 152/65
[2025-01-22 15:19] LABS: TSH Reflex To Free T4 3.06 uIU/ml (0.47-4.68)
[2025-01-22 15:59] LABS: NT-proBNP 467 pg/ml
[2025-01-22 16:00] VITALS: BP 143/62
== END 2025-01-22 16:45 | disposition home or self-care (01) ==
LOC: EMR 11:05
PROVIDERS: EMERGENCY PHYSICIAN Emergency Medicine; FAMILY PHYSICIAN Internal Medicine Geriatric Medicine
DX: R00.2 Palpitations (principal); I35.0 Nonrheumatic aortic (valve) stenosis; Z86.711 Personal history of pulmonary embolism; Z79.01 Long term (current) use of anticoagulants
CPT/HCPCS: 99285; 96374; 96375; 71046; 80053; 83735; 83880; 84443; 84484; 85025; 93005

== ENCOUNTER → 2025-03-01 13:25 | Outpatient (REF) | payer MEDICARE, SELFPAY ==
[2025-03-01 14:27] LABS: Hematocrit 44.7 % (37.0-47.0); Hemoglobin 15.3 g/dL (12.0-16.0); Mean Corp Hgb Conc. 34.2 g/dL (33.0-37.0); Mean Corpuscular Volume 97.6 fL (81.0-99.0); Nucleated Red Blood Cells % 0 %; Platelet Count 209 10^3/uL (130-400); Red Cell Dist. Width 13.0 % (11.5-14.5)
[2025-03-01 14:54] LABS: ALT (SGPT) 22 U/L (0-35); AST (SGOT) 27 U/L (14-36); Albumin 4.4 g/dl (3.5-5.0); Alkaline Phosphatase 66 U/L (38-126); Blood Urea Nitrogen 16 mg/dl (7-17); Calcium 10.2 mg/dl (8.4-10.2); Carbon Dioxide 30 mmol/L (22-30); Chloride 106 mmol/L (98-107); Glucose 98 mg/dl (70-99); Potassium 4.4 mmol/L (3.5-5.1); Sodium 138 mmol/L (135-145); Total Protein 6.5 g/dl (6.3-8.2); eGFR > 60.00
[2025-03-01 15:08] LABS: Vitamin D, 25-OH*** 34.8 ng/mL (30-80)
== END ==
LOC: REG 13:25
PROVIDERS: ATTENDING PHYSICIAN Internal Medicine Rheumatology; FAMILY PHYSICIAN Internal Medicine Geriatric Medicine
DX: E55.9 Vitamin D deficiency, unspecified (principal); M25.50 Pain in unspecified joint; M48.061 Spinal stenosis, lumbar region without neurogenic claudication; M54.50 Low back pain, unspecified; M81.0 Age-related osteoporosis without current pathological fracture; Z51.81 Encounter for therapeutic drug level monitoring
CPT/HCPCS: 36415; 80053; 82306; 85025

== ENCOUNTER → 2025-04-13 09:18 | Outpatient (REF) | payer MEDICARE, SELFPAY | LOC: REG 09:18 | PROVIDERS: ATTENDING PHYSICIAN Internal Medicine Cardiovascular Disease; FAMILY PHYSICIAN Internal Medicine Geriatric Medicine | DX: R06.09 Other forms of dyspnea (principal); R53.83 Other fatigue | CPT/HCPCS: 36415; 83880; 84443 ==

== ENCOUNTER → 2025-04-15 11:06 | Outpatient (REF) | payer MEDICARE, SELFPAY | LOC: RCS 11:06 | PROVIDERS: ATTENDING PHYSICIAN Internal Medicine Cardiovascular Disease; FAMILY PHYSICIAN Internal Medicine Geriatric Medicine | DX: R06.09 Other forms of dyspnea (principal); R29.6 Repeated falls; R53.83 Other fatigue | CPT/HCPCS: 93306 ==

== ENCOUNTER → 2025-04-20 10:47 | Outpatient (REF) | payer MEDICARE, SELFPAY | LOC: HWRAD 10:47 | PROVIDERS: ATTENDING PHYSICIAN Specialist; FAMILY PHYSICIAN Internal Medicine Geriatric Medicine | DX: R29.6 Repeated falls (principal) | CPT/HCPCS: 70450 ==

== ENCOUNTER → 2025-08-02 12:05 | Outpatient (REF) | payer MEDICARE, SELFPAY ==
[2025-08-02 13:18] LABS: Hematocrit 45.8 % (37.0-47.0); Hemoglobin 15.5 g/dL (12.0-16.0); Mean Corp Hgb Conc. 33.8 g/dL (33.0-37.0); Mean Corpuscular Volume 96.4 fL (81.0-99.0); Nucleated Red Blood Cells % 0 %; Platelet Count 238 10^3/uL (130-400); Red Cell Dist. Width 12.8 % (11.5-14.5)
[2025-08-02 14:06] LABS: LDH 252 U/L (120-246)
[2025-08-02 15:12] LABS: Folate 19.5 ng/ml (2.76-20); Vitamin B12 538 pg/ml (239-931)
== END ==
LOC: REG 12:05
PROVIDERS: ATTENDING PHYSICIAN Nurse Practitioner Adult Health; FAMILY PHYSICIAN Internal Medicine Geriatric Medicine
DX: I27.82 Chronic pulmonary embolism (principal); D83.9 Common variable immunodeficiency, unspecified; D50.9 Iron deficiency anemia, unspecified; C83.07 Small cell B-cell lymphoma, spleen; D70.9 Neutropenia, unspecified; R19.7 Diarrhea, unspecified; R53.83 Other fatigue; D51.3 Other dietary vitamin B12 deficiency anemia
CPT/HCPCS: 36415; 82607; 82746; 83615; 85025